=== PATIENT | male | born 1965 | race Two or more races ===

== ENCOUNTER 2018-08-20 15:09 | Emergency (ER) | payer MEDICAID, OTHER ==
[~2018-08-20] VITALS: Ht 172.7 cm; Wt 102.1 kg
[2018-08-20 15:18] VITALS: BP 137/84
[2018-08-20] MEDS ORDERED: KETOROLAC TROMETH 60MG/2ML VIAL IM ONE (17:00)
== END 2018-08-20 17:16 | disposition home or self-care (01) ==
LOC: ER 15:11
DX: M54.5 Low back pain (principal); G89.29 Other chronic pain; K04.7 Periapical abscess without sinus; J45.909 Unspecified asthma, uncomplicated; F17.210 Nicotine dependence, cigarettes, uncomplicated; Z76.0 Encounter for issue of repeat prescription
CPT/HCPCS: 72070; 72100; 96372; 99283; J1885

== ENCOUNTER 2019-02-01 12:58 | Emergency (ER) | payer MEDICAID ==
[~2019-02-01] VITALS: Ht 170.2 cm; Wt 99.8 kg
[2019-02-01 14:15] VITALS: BP 136/92
[2019-02-01] MEDS ORDERED: cefTRIAXone SOD 1,000 MG VL IM ONE (15:30)
== END 2019-02-01 15:48 | disposition home or self-care (01) ==
LOC: ER 12:58
DX: H66.91 Otitis media, unspecified, right ear (principal); J06.9 Acute upper respiratory infection, unspecified; J45.909 Unspecified asthma, uncomplicated; Z87.891 Personal history of nicotine dependence
CPT/HCPCS: 71046; 96372; 99283; J0696

== ENCOUNTER 2020-02-01 21:10 | Emergency (ER) | payer MEDICAID ==
[~2020-02-01] VITALS: Ht 170.2 cm; Wt 102.1 kg
[2020-02-01 21:47] VITALS: BP 112/78
== END 2020-02-02 02:42 | disposition home or self-care (01) ==
LOC: ER 21:18
DX: S93.402A Sprain of unspecified ligament of left ankle, initial encounter (principal); M65.221 Calcific tendinitis, right upper arm; M79.671 Pain in right foot; W01.0XXA Fall on same level from slipping, tripping and stumbling without subsequent striking against object, initial encounter; Y93.01 Activity, walking, marching and hiking; Y92.89 Other specified places as the place of occurrence of the external cause; Y99.8 Other external cause status
CPT/HCPCS: 73080; 73630

== ENCOUNTER 2020-05-26 16:11 | Emergency (ER) | payer MEDICAID ==
[~2020-05-26] VITALS: Ht 170.2 cm; Wt 106.6 kg
[2020-05-26 17:49] LABS: Basophils # (auto) 0 10 ^3/uL (0-0.2); Basophils % (auto) 0.2 % (0.0-2.0); Eosinophils # (auto) 0 10 ^3/uL (0-0.8); Eosinophils % (auto) 0.6 % (0.0-7.0); Hematocrit 46.8 % (41.0-53.0); Hemoglobin 16.4 g/dL (13.5-17.5); Lymphocytes # (auto) 2.1 10 ^3/uL (0.4-5.4); Lymphocytes % (auto) 28.8 % (10.0-50.0); Mean Corpuscular Hemoglobin 31.5 pg (28.0-32.0); Mean Corpuscular Hgb Conc. 35.1 g/dL (32.0-36.0); Mean Corpuscular Volume 89.6 fL (80.0-100.0); Monocytes # (auto) 0.6 10 ^3/uL (0-1.3); Monocytes % (auto) 8.9 % (0.0-12.0); Neutrophils # (auto) 4.4 10 ^3/uL (1.6-8.6); Neutrophils % (auto) 61.5 % (37.0-80.0); Nucleated Red Blood Cells % 0.1 %; Platelet Count (auto) 210 10^3/uL (140-450); Red Blood Cells 5.22 10^6/uL (4.5-5.90); Red Cell Distribution Width 13.7 % (11.8-14.3); White Blood Cell 7.2 10^3/uL (4.4-10.8)
[2020-05-26 18:05] LABS: Salicylate < 1.7 mg/dL (2.8-20.0)
[2020-05-26 18:07] LABS: Alanine Aminotransferase 265 U/L (16-61); Albumin 3.3 g/dL (3.4-5.0); Anion Gap 8 (5-15); Aspartate Aminotransferase 169 U/L (15-37); BUN/Creatinine Ratio 18.6; Blood Alcohol < 3.0 mg/dL (0-5); Blood Urea Nitrogen 18 mg/dL (7-18); Carbon Dioxide 22 mmol/L (21-32); Chloride 102 mmol/L (98-107); GFR African American 105 mL/min; GFR Non-African American 86 mL/min; Glucose 90 mg/dL (74-106); Potassium 3.9 mmol/L (3.5-5.1); Sodium 132 mmol/L (136-145)
[2020-05-26 18:10] LABS: Alkaline Phosphatase 89 U/L (45-117); Total Protein 7.1 g/dL (6.4-8.2)
[2020-05-26 18:17] LABS: Amylase 50 U/L (25-115); Lipase 166 U/L (73-393)
[2020-05-26 18:33] LABS: Acetaminophen < 2.0 ug/mL (10-30)
[2020-05-26] MEDS ORDERED: FAMOTIDINE (10MG/ML) 2ML VL IV ONE (19:00)
[2020-05-26] MEDS ORDERED: DOXYCYCLINE 100 MG TAB/CAP PO ONE (19:00)
[2020-05-26] MEDS ORDERED: SODIUM CHLORIDE 0.9% 500 ML IV ONE (19:00)
[2020-05-26] MEDS ORDERED: cefTRIAXone 1GM/50ML D5W 50 ML IV ONE (19:00)
[2020-05-26] MEDS ORDERED: ONDANSETRON HCL 4 MG/2 ML VIAL IV ONE (21:00)
[2020-05-26] MEDS ORDERED: LORazepam 0.5 MG TAB PO ONE (21:45)
[2020-05-27 01:01] VITALS: BP 103/54
== END 2020-05-27 03:18 | disposition home or self-care (01) ==
LOC: ER 16:11
DX: U07.1 COVID-19 (principal); F41.9 Anxiety disorder, unspecified; J18.9 Pneumonia, unspecified organism; E86.0 Dehydration; R94.5 Abnormal results of liver function studies; K76.0 Fatty (change of) liver, not elsewhere classified; K57.90 Diverticulosis of intestine, part unspecified, without perforation or abscess without bleeding; D73.4 Cyst of spleen; I10 Essential (primary) hypertension; Z87.891 Personal history of nicotine dependence
CPT/HCPCS: 36415; 71045; 74176; 76705; 80053; 80320; 80329; 82150; 83690; 83735; 83880; 84484; 85025; 87426; 93005; 96365; 96375; 99285; C9803; J0696; J2405; J3490; U0003

== ENCOUNTER 2020-11-19 08:33 | Emergency (ER) | payer MEDICAID ==
[~2020-11-19] VITALS: Ht 170.2 cm; Wt 110.2 kg
[2020-11-19 08:58] VITALS: BP 143/93
[2020-11-19] MEDS ORDERED: IBUPROFEN 800 MG TAB PO ONE (09:15)
== END 2020-11-19 10:00 | disposition home or self-care (01) ==
LOC: ER 08:33
DX: S46.912A Strain of unspecified muscle, fascia and tendon at shoulder and upper arm level, left arm, initial encounter (principal); J45.909 Unspecified asthma, uncomplicated; I10 Essential (primary) hypertension; Z87.891 Personal history of nicotine dependence; X50.1XXA Overexertion from prolonged static or awkward postures, initial encounter; Y93.89 Activity, other specified; Y92.89 Other specified places as the place of occurrence of the external cause; Y99.8 Other external cause status
CPT/HCPCS: 73030; 93005

== ENCOUNTER 2021-01-13 12:19 | Emergency (ER) | payer MEDICAID ==
[~2021-01-13] VITALS: Ht 172.7 cm; Wt 108.0 kg
[2021-01-13 13:00] VITALS: BP 126/82
[2021-01-13] MEDS ORDERED: BENZOCAINE (DENTAL) 20 % SPRAY 60ML MT ONE (14:00)
== END 2021-01-13 15:31 | disposition home or self-care (01) ==
LOC: ER 12:19
DX: K02.9 Dental caries, unspecified (principal); J45.909 Unspecified asthma, uncomplicated; I10 Essential (primary) hypertension; Z87.891 Personal history of nicotine dependence

== ENCOUNTER 2021-05-10 18:22 | Emergency (ER) | payer MEDICAID ==
[~2021-05-10] VITALS: Ht 170.2 cm; Wt 102.1 kg
[2021-05-10 18:31] VITALS: BP 132/85
== END 2021-05-11 05:51 | disposition left against medical advice (07) ==
LOC: ER 18:22
DX: M79.602 Pain in left arm (principal); Z53.21 Procedure and treatment not carried out due to patient leaving prior to being seen by health care provider

== ENCOUNTER 2021-07-13 06:51 | Emergency (ER) | payer MEDICAID ==
[2021-07-13 07:58] VITALS: BP 146/86
[2021-07-13] MEDS ORDERED: PROMETHAZINE HCL 25 MG/ML 1ML IM ONE (08:30)
[2021-07-13] MEDS ORDERED: MECLIZINE HCL 25 MG TAB PO ONE (08:30)
[2021-07-13] MEDS ORDERED: AMOX-277 PO (08:55)
[2021-07-13] MEDS ORDERED: MECL1TAB42 PO (08:55)
[2021-07-13] MEDS ORDERED: PROM25TA5 OR (08:55)
== END 2021-07-13 09:20 | disposition home or self-care (01) ==
LOC: ER 06:51
DX: R42 Dizziness and giddiness (principal); H65.03 Acute serous otitis media, bilateral; Z76.0 Encounter for issue of repeat prescription; I10 Essential (primary) hypertension; E78.5 Hyperlipidemia, unspecified; Z87.891 Personal history of nicotine dependence; Z79.2 Long term (current) use of antibiotics; Z79.899 Other long term (current) drug therapy
CPT/HCPCS: 96372; 99283; J2550; J8597

== ENCOUNTER 2021-09-04 00:29 | Emergency (ER) | payer MEDICAID ==
[~2021-09-04] VITALS: Ht 170.2 cm; Wt 106.1 kg
[~2021-09-04 00:29] MED LIST: AMOX-277 PO; MECL1TAB42 PO; PROM25TA5 OR
[2021-09-04 00:31] VITALS: BP 155/97
[2021-09-04] MEDS ORDERED: LEVO-28 PO (03:18)
== END 2021-09-04 04:22 | disposition home or self-care (01) ==
LOC: ER 00:29
DX: J40 Bronchitis, not specified as acute or chronic (principal); E78.5 Hyperlipidemia, unspecified; I10 Essential (primary) hypertension; Z87.891 Personal history of nicotine dependence
CPT/HCPCS: 71045

== ENCOUNTER 2022-09-09 08:15 | Emergency (ER) | payer MEDICAID ==
[~2022-09-09] VITALS: Ht 177.8 cm; Wt 116.4 kg
[~2022-09-09 08:15] MED LIST changes: +LEVO-28 PO
[2022-09-09 09:02] VITALS: BP 148/94
[2022-09-09] MEDS ORDERED: IPRATROPIUM BROM 0.5 MG/2.5ML INH SOL ONE (09:37)
[2022-09-09] MEDS ORDERED: ALBUTEROL SULF 2.5 MG/0.5ML(0.5%) NEB SOLN ONE (09:37)
[2022-09-09] MEDS ORDERED: AUG875T PO (09:43)
[2022-09-09] MEDS ORDERED: PRED20TA2 PO (09:44)
[2022-09-09] MEDS ORDERED: ALBU108A5 IN (09:44)
[2022-09-09] MEDS ORDERED: BENZ100C19 PO (09:44)
[2022-09-09] MEDS ORDERED: DexAMETHasone SOD PHOS 10MG/1ML VIAL INJ IM ONE (09:45)
[2022-09-09] MEDS ORDERED: IPRATROPIUM BROM 0.5 MG/2.5ML INH SOL NEB ONE (09:45)
[2022-09-09] MEDS ORDERED: ALBUTEROL SULF 2.5 MG/0.5ML(0.5%) NEB SOLN NEB ONE (09:45)
[2022-09-09] MEDS ORDERED: guaiFENesin-CODEINE Liq 5 ML UD PO ONE (09:45)
== END 2022-09-09 10:11 | disposition home or self-care (01) ==
LOC: ER 08:15
DX: J20.9 Acute bronchitis, unspecified (principal); J03.90 Acute tonsillitis, unspecified; E78.5 Hyperlipidemia, unspecified; I10 Essential (primary) hypertension
CPT/HCPCS: 94640; 96372; 99283; J1100; J7644

== ENCOUNTER 2023-08-18 06:15 | Emergency (ER) | payer MEDICAID ==
[~2023-08-18] VITALS: Ht 172.7 cm; Wt 118.1 kg
[~2023-08-18 06:15] MED LIST changes: +ALBU108A5 IN; -AMOX-277 PO; +AMOX875T4 PO; +AUG875T PO; +BENZ100C19 PO; -LEVO-28 PO; +LEVO500T91 PO; +PRED20TA2 PO; +PROM25TA10 OR; -PROM25TA5 OR
[2023-08-18 06:55] VITALS: BP 132/87; PULSE 79; RESP 20; TEMP 97.6; O2SAT 97
[2023-08-18] MEDS ORDERED: AUG875T PO (07:52)
[2023-08-18] MEDS ORDERED: PROM1SOL4 PO (07:52)
[2023-08-18] MEDS ORDERED: BENZ100C97 PO (07:52)
[2023-08-18] MEDS: ONDANSETRON ODT 4 MG TAB PO ONE (08:07)
== END 2023-08-18 08:14 | disposition home or self-care (01) ==
LOC: ER 06:15
DX: J20.9 Acute bronchitis, unspecified (principal); E78.5 Hyperlipidemia, unspecified; I10 Essential (primary) hypertension; Z87.891 Personal history of nicotine dependence
CPT/HCPCS: 71046; 99283; Q0162

== ENCOUNTER 2024-02-29 08:13 | Emergency (ER) | payer MEDICAID ==
[~2024-02-29] VITALS: Ht 175.3 cm; Wt 112.1 kg
[~2024-02-29 08:13] MED LIST changes: +BENZ100C97 PO; +ECON1CRE6 TOP; +NYST150P2 XX; +PROM1SOL4 PO
[2024-02-29 08:36] VITALS: BP 182/107; PULSE 82; RESP 18; TEMP 97.4; O2SAT 97
[2024-02-29] MEDS ORDERED: PSEU120T18 PO (08:56)
[2024-02-29] MEDS ORDERED: PROM1SOL4 PO (08:56)
[2024-02-29] MEDS ORDERED: AZIT-43 PO (08:56)
[2024-02-29] MEDS ORDERED: IBUP1TAB5 PO (08:56)
[2024-02-29] MEDS ORDERED: SODI1KIT2 (08:56)
== END 2024-02-29 09:07 | disposition home or self-care (01) ==
LOC: ER 08:13
DX: B34.9 Viral infection, unspecified (principal); I10 Essential (primary) hypertension; E78.5 Hyperlipidemia, unspecified

== ENCOUNTER 2024-04-05 11:06 | Emergency (ER) | payer MEDICAID ==
[~2024-04-05] VITALS: Ht 170.2 cm; Wt 113.6 kg
[~2024-04-05 11:06] MED LIST changes: +AZIT-43 PO; +IBUP1TAB5 PO; +PSEU120T18 PO; +SODI1KIT2
--- NOTE | 2024-04-05 11:38 | ED.PDOC ---
Musculoskeletal HPI Comments 58 year old male presents to the ED with chief complaint of bilateral shoulder pain. Patient reports that he has been experiencing bilateral shoulder pain with associated bilateral knee pain, right sided headache, mild SOB, back pain, and neck pain after having an elevator door close on him when trying to enter it. Patient relays when the doors closed on his shoulders, he had hit his head accidentally against the door, causing his headache. Patient denies any LOC, dizziness, blurred vision, chest pain, or numbness. Time Seen by MD: 11:32 Primary Care Provider: NONE Reviewed Notes: Nurses Notes, Medications, Allergies Allergies: Coded Allergies: NO KNOWN ALLERGIES (Unverified , 08/20/18) Home Meds Active Scripts Sodium Chloride-Sodium Bicarbo (Neti Pot Kit Sinus Wash/C 2300-700 mg) 1 Kit Kit, 1 KIT NA UD for 30 Days, #1 KIT 0 Refills Prov:MARTIN GTZ NP 02/29/24 Ibuprofen Micronized (Ibuprofen) 600 Mg Tab, 600 MG PO TIDPRN PRN for 10 Days, #30 TAB 0 Refills Prov:MARTIN GTZ NP 02/29/24 Azithromycin (Azithromycin) 250 Mg Tab, 250 MG PO DAILY MDD 500 for 5 Days, #6 TAB 0 Refills 2 TABLETS ORALLY ON DAY ONE, THEN 1 TABLET ORALLY DAILY FOR 4 DAYS Prov:MARTIN GTZ NP 02/29/24 Pseudoephedrine-Guaifenesin (Mucinex D) 1 Tab Tab, 1 TAB PO BID for 10 Days, #20 TAB 0 Refills Prov:MARTIN GTZ NP 02/29/24 Promethazine-Dm (Promethazine Dm 6.25-15 mg/5Ml) 1 Sherry Sherry, 5 ML PO TIDPRN PRN for 10 Days, #150 ML 0 Refills Prov:MARTIN GTZ NP 02/29/24 Nystatin (Nystatin) 1 Pow Pow, 1 POW XX BID for 10 Days, #1 KIT 0 Refills Prov:MARTIN GTZ NP 12/29/23 Econazole Nitrate (Econazole Nitrate) 1 % Cre, 1 APPLIC TOP BID for 14 Days, #30 GRAMS 0 Refills Prov:MARTIN GTZ NP 12/29/23 Promethazine-Dm (Promethazine Dm 6.25-15 mg/5Ml) 1 Sherry Sherry, 5 ML PO TID for 10 Days, #150 ML 0 Refills Prov:MARTIN GTZ BILL DISTRIBUTOR 08/18/23 Benzonatate (Benzonatate) 100 Mg Cap, 100 MG PO TID for 10 Days, #30 CAP 0 Refills Prov:MARTIN GTZ BILL DISTRIBUTOR 08/18/23 Amoxicillin & Pot Clavulanate (AUGMENTIN TABLET) 875 Mg Tb, 875 MG PO BID for 5 Days, #10 TAB 0 Refills Prov:MARTIN GTZ BILL DISTRIBUTOR 08/18/23 Albuterol Sulfate (Albuterol Sulfate Hfa) 108 Mcg/Act Aer, 2 PUFF IN Q4H, #1 AER As needed for cough shortness of breath wheezing congestion Prov:DEWEYKERRIANAIS Q BILL DISTRIBUTOR 09/09/22 Prednisone (Prednisone) 20 Mg Tab, 20 MG PO BID for 5 Days, #10 MG Start tomorrow with food Prov:DEWEYKERRIANAIS Q BILL DISTRIBUTOR 09/09/22 Benzonatate (Tessalon Perles) 100 Mg Cap, 2 CAP PO Q8HR, #21 CAP As needed for cough Prov:DEWEYKERRIANAIS Q BILL DISTRIBUTOR 09/09/22 Amoxicillin & Pot Clavulanate (AUGMENTIN TABLET) 875 Mg Tb, 875 MG PO BID for 10 Days, #20 TAB Prov:DEWEYKERRIANAIS Q BILL DISTRIBUTOR 09/09/22 Levofloxacin Hemihydrate (LEVOFLOXACIN) 500 Mg Tab, 500 MG PO DAILY for 10 Days, #10 MG Prov:LEO BELCHER MD 09/04/21 Promethazine Hcl (Promethazine Hcl) 25 Mg Tab, 25 MG OR BID, #20 TAB 0 Refills Prov:THERESA WORKMAN 07/13/21 Meclizine HCl (Meclizine 25) 25 Mg Tab, 25 MG PO TID, #30 TAB Prov:THERESA WORKMAN 07/13/21 Amoxicillin & Pot Clavulanate (Amoxicillin/Potassium Cla) 875 Mg Tab, 875 MG PO BID, #20 TAB Prov:THERESA WORKMAN 07/13/21 Information Source: Patient Mode of Arrival: Ambulatory Location: Bilateral Extremity Location: Back, Knee, Shoulder Timing: Hours Prehospital treatment: None Severity: Moderate Able to Move Extremity: Yes Bear Weight: Fully Pain: Moderate Mechanism: Crush Circumstances: Door Closure Onset of Symptoms: After Trauma Symptoms: Pain DVT Risk Factors: NONE Last Tetanus: Unknown Past Medical History PAST MEDICAL HISTORY: High Lipids, HTN Surgical History: Denies all surgeries Family History Family History: Reviewed,noncontributory to illness, Family hx of HTN Social History Smoker: Quit Greater Than 1 Year, Cigarettes Alcohol: Denies ETOH Use Drugs: Denies Drug Use Lives In: Home Constitutional: denies: chills, diaphoresis, fatigue, fever, malaise, sweats, weakness, others EENTM: denies: blurred vision, double vision, ear bleeding, ear discharge, ear drainage, ear pain, ear ringing, eye pain, eye redness, hearing loss, mouth pain, mouth swelling, nasal discharge, nose bleeding, nose congestion, nose az n, photophobia, tearing, throat pain, throat swelling, voice changes, others Respiratory: reports: shortness of breath; denies: cough, hemoptysis, orthopnea, SOB at rest, SOB with excertion, stridor, wheezing, others Cardiovascular: denies: chest pain, dizzy spells, diaphoresis, Dyspnea on exertion, edema, irregular heart beat, left arm pain, lightheadedness, palpitations, PND, syncope, others Gastrointestinal: denies: abdomen distended, abdominal pain, blood streaked bowels, constipated, diarrhea, dysphagia, difficulty swallowing, hematemesis, me lacey, nausea, poor appetite, poor fluid intake, rectal bleeding, rectal pain, vomiting, others Genitourinary: denies: burning, dysuria, flank pain, frequency, hematuria, incontinence, penile discharge, penile sore, pain, testicle pain, testicle swelling, urgency, others Neurological: reports: headache; denies: dizziness, fainting, left sided numbness, left sided weakness, numbness, paresthesia, pre-existing deficit, right sided numbness, right sided weakness, seizure, speech problems, tingling, tremors, weakness, others Musculoskeletal: reports: back pain, neck pain, others (Bilateral shoulder pain, bilateral knee pain, ); denies: gout, joint pain, joint swelling, muscle pain, muscle stiffness Integumetry: denies: bruises, change in color, change in hair/nails, dryness, laceration, lesions, lumps, rash, wounds, others Allergic/Immunocompromised: denies: Difficulty Healing, Frequent Infections, Hives, Itching, others Hematologic/Lymphatic: denies: anemia, blood clots, easy bleeding, easy bruising, swollen glands, others Endocrine: denies: excessive hunger, excessive sweating, excessive thirst, excessive urination, flushing, intolerance to cold, intolerance to heat, unexplained weight gain, unexplained weight loss, others Psychiatric: denies: anxiety, bipolar disorder, depression, hopeless, panic disorder, schizophrenia, sleepless, suicidal, others All Other Systems: Reviewed and Negative Physical Exam General Appearance: No Apparent Distress, Normal HEENT: Normal ENT Inspection, PERRL/EOMI Neck: Full Range of Motion, Non-Tender, Normal, Normal Inspection Respiratory: Chest Non-Tender, Lungs Clear, No Accessory Muscle Use, No Respiratory Distress, Normal Breath Sounds Cardiovascular: No Edema, No JVD, No Murmur, No Gallop, Normal Peripheral Pul ses, Regular Rate/Rhythm Breast Exam: Deferred Gastrointestinal: No Organomegaly, Non Tender, No Pulsatile Mass, Normal Bowel Sounds, Soft Genitalia: Deferred Pelvic: Deferred Rectal: Deferred Extremities: No calf tenderness, Normal capillary refill, Normal inspection, Normal range of motion, Non-tender, No pedal edema Musculoskeletal : Apperance: Normal Neurologic: Alert, cable tender II-XII nml as Tested, No Motor Deficits, Normal Affect, Normal Mood, No Sensory Deficits Cerebellar Function: Normal Reflexes: Normal Skin: Dry, Normal Color, Warm Lymphatic: No Adenopathy Was a procedure done? Was a procedure done?: No Differential Diagnosis EXT Differential Diagnosis: Fracture, Sprain, Contusion, Strain X-Ray, Labs, Meds, VS Vital Signs Date Time Temp Pulse Resp B/P (MAP) Pulse Ox O2 Delivery O2 Flow Rate FiO2 04/05/24 13:00 97.7 87 20 144/96 (112) 92 97.7 04/05/24 12:59 98.6 04/05/24 12:58 98.6 04/05/24 12:57 60 18 98 Room Air* 0 21 04/05/24 11:33 98.0 100 17 150/90 (110) 99 Current Medications Medications (Trade) Dose Ordered Sig/Radha Route Start Time Stop Time Status Last Admin Acetaminophen (Tylenol Tablet) 1,000 mg ONCE ONCE PO 04/05/24 11:45 04/05/24 11:46 DC 04/05/24 12:59 Ibuprofen (Motrin Tablet) 800 mg ONCE ONCE PO 04/05/24 11:45 04/05/24 11:46 DC 04/05/24 12:58 XR C-Spine: FINDINGS: Straightening of the cervical spine. C7 vertebral body is obscured due to overlying osseous structures. The predental space is normal. Mild multilevel degenerative disc disease of the cervical spine. No acute fracture, vertebral compression deformity or aggressive osseous lesions. The imaged lung apices are unremarkable. IMPRESSION: No acute fracture. Lt Shoulder XR: FINDINGS/IMPRESSION: There is no evidence of acute fracture or dislocation. The visualized joint space is well maintained. The alignment is anatomical. There is no radiopaque foreign body. Rt Shoulder XR: FINDINGS/IMPRESSION: : There is no evidence of acute fracture or dislocation. Soft tissues are unremarkable. Degenerative changes of the AC joint and lateral aspect of the proximal humeral head. Images Reviewed?: Images reviewed and evaluated by me Time of 1ST Reevaluation: 12:32 Reevaluation 1ST: Unchanged Time of 2ND Reevaluation: 13:33 Reevaluation 2ND: Unchanged Patient Education/Counseling: Diagnosis, Treatment Family Education/Counseling: No Family Present Departure 1 Departure Time of Disposition: 13:33 Impression: Primary Impression: Left shoulder strain Additional Impression: Neck sprain Disposition: 01 HOME / SELF CARE / HOMELESS Condition: Stable Additional Instructions: Thank you for visiting our Emergency Room. I wish you full and complete recovery. Please follow the following instructions: 1. Take your medication bottles with you to EVERY DOCTOR'S VISIT (including your primary doctor). 2. Please follow up with your primary doctor in 2-3 days or sooner if symptoms do not improve. 3. Please read all the papers given to you at the time of the discharge so that you understand your condition better. 4. Please note that the emergency room visits are focused and not necessarily comprehensive. Therefore, it is possible that some occult medical conditions may go undiagnosed in the ER. 5. The emergency room visits are not and should not be thought of as replacement for regular visits with your primary doctor. 6. Therefore, it is absolutely critical that you follows up with your primary doctor on regular basis to make sure you receives a complete and comprehensive care. 7. I recommended the you take the hospital discharge papers to your primary care physician and other doctors' offices with you. 8. Go to your nearest emergency room if you think your condition gets worse or you think your condition is an emergency. Discharged With: Self Critical Care Note Critical Care Time?: No Stability Stability form required: No Heart Score Heart Score: Heart Score Response (Comments) Value History N/A 0 EKG N/A 0 Age N/A 0 Risk Factors N/A 0 Troponin N/A 0 Total 0 I personally scribed for CLIVE RENE MD ([email or web address]) on 04/05/24 at 11:38. Electronically submitted by Sean Calderon ([email or web address]). I personally scribed for CLIVE REEN MD ([email or web address]) on 04/05/24 at 13:14. Electronically submitted by Sean Calderon ([email or web address]). CLIVE RENE MD Apr 05, 2024 11:38
--- NOTE | 2024-04-05 12:21 | DVH ---
CLINICAL INDICATION: trauma TECHNIQUE: 3 XY L SHOULDER 2+ VIEW XRAY Comparison: L SHOULDER COMPLETE XRAY on DOS: 11/19/20 FINDINGS/IMPRESSION: : There is no evidence of acute fracture or dislocation. Soft tissues are unremarkable. Degenerative changes of the AC joint and lateral aspect of the proximal humeral head.
--- NOTE | 2024-04-05 12:31 | DVH ---
CLINICAL INDICATION: trauma TECHNIQUE: 3 radiographic views of the right shoulder were obtained. Comparison: L SHOULDER COMPLETE XRAY on DOS: 11/19/20 FINDINGS/IMPRESSION: There is no evidence of acute fracture or dislocation. The visualized joint space is well maintained. The alignment is anatomical. There is no radiopaque foreign body.
--- NOTE | 2024-04-05 12:32 | DVH ---
INDICATION: TRAUMA COMPARISON: None TECHNIQUE: 4 views of the cervical spine were obtained. FINDINGS: Straightening of the cervical spine. C7 vertebral body is obscured due to overlying osseous structure s. The predental space is normal. Mild multilevel degenerative disc disease of the cervical spine. No acute fracture, vertebral compression deformity or aggressive osseous lesions. The imaged lung apices are unremarkable. IMPRESSION: No acute fracture.
[2024-04-05 12:57] VITALS: PULSE 60; RESP 18; O2SAT 98
[2024-04-05] MEDS: IBUPROFEN 800 MG TAB PO ONE (12:58)
[2024-04-05] MEDS: ACETAMINOPHEN 500 MG TAB or CAP PO ONE (12:59)
[2024-04-05 14:09] VITALS: BP 152/97; PULSE 79; RESP 18; TEMP 97.8; O2SAT 96
== END 2024-04-05 14:10 | disposition home or self-care (01) ==
LOC: ER 11:06
DX: S46.812A Strain of other muscles, fascia and tendons at shoulder and upper arm level, left arm, initial encounter (principal); S13.8XXA Sprain of joints and ligaments of other parts of neck, initial encounter; M25.561 Pain in right knee; M25.562 Pain in left knee; I10 Essential (primary) hypertension; E78.5 Hyperlipidemia, unspecified; Z87.891 Personal history of nicotine dependence; Z79.899 Other long term (current) drug therapy; Z79.52 Long term (current) use of systemic steroids; W22.8XXA Striking against or struck by other objects, initial encounter; Y93.89 Activity, other specified; Y92.89 Other specified places as the place of occurrence of the external cause; Y99.8 Other external cause status
CPT/HCPCS: 72040; 73030

== ENCOUNTER 2025-02-26 10:16 | Emergency (ER) | payer MEDICAID ==
[~2025-02-26] VITALS: Ht 172.7 cm; Wt 108.1 kg
--- NOTE | 2025-02-26 10:52 | ED.PDOC ---
GI ASSESSMENT HPI Comments This is a 59 year-old male who presents to the ED with a chief complaint of N/V and abdominal pain as of yesterday. Patient denies any recent ingestion of ETOH or drugs. Patient states he is unable to tolerate any liquids or food. Patient has no further complaints at this time and otherwise denies further associated symptoms of dizziness, fever, chills, diarrhea, or chest pain. Chief Complaint: Abdominal Pain Time Seen by MD: 10:31 Primary Care Provider: none Reviewed Notes: Medications, Allergies Allergies: Coded Allergies: NO KNOWN ALLERGIES (Unverified , 08/20/18) Home Meds Active Scripts Sodium Chloride-Sodium Bicarbo (Neti Pot Kit Sinus Wash/C 2300-700 mg) 1 Kit Kit, 1 KIT NA UD for 30 Days, #1 KIT 0 Refills Prov:MARTIN GTZ BOBBY 02/29/24 Ibuprofen Micronized (Ibuprofen) 600 Mg Tab, 600 MG PO TIDPRN PRN for 10 Days, #30 TAB 0 Refills Prov:MARTIN GTZ BOBBY 02/29/24 Azithromycin (Azithromycin) 250 Mg Tab, 250 MG PO DAILY MDD 500 for 5 Days, #6 TAB 0 Refills 2 TABLETS ORALLY ON DAY ONE, THEN 1 TABLET ORALLY DAILY FOR 4 DAYS Prov:MARTIN GTZ BOBBY 02/29/24 Pseudoephedrine-Guaifenesin (Mucinex D) 1 Tab Tab, 1 TAB PO BID for 10 Days, #20 TAB 0 Refills Prov:MARTIN GTZ BOBBY 02/29/24 Promethazine-Dm (Promethazine Dm 6.25-15 mg/5Ml) 1 Sherry Sherry, 5 ML PO TIDPRN PRN for 10 Days, #150 ML 0 Refills Prov:MARTIN GTZ BOBBY 02/29/24 Nystatin (Nystatin) 1 Pow Pow, 1 POW XX BID for 10 Days, #1 KIT 0 Refills Prov:MARTIN GTZ BOBBY 12/29/23 Econazole Nitrate (Econazole Nitrate) 1 % Cre, 1 APPLIC TOP BID for 14 Days, #30 GRAMS 0 Refills Prov:MARTIN GTZ BOBBY 12/29/23 Promethazine-Dm (Promethazine Dm 6.25-15 mg/5Ml) 1 Sherry Sherry, 5 ML PO TID for 10 Days, #150 ML 0 Refills Prov:MARTIN GTZ METAL CLEANER 08/18/23 Benzonatate (Benzonatate) 100 Mg Cap, 100 MG PO TID for 10 Days, #30 CAP 0 Refills Prov:MARTIN GTZ METAL CLEANER 08/18/23 Amoxicillin & Pot Clavulanate (AUGMENTIN TABLET) 875 Mg Tb, 875 MG PO BID for 5 Days, #10 TAB 0 Refills Prov:MARTIN GTZ METAL CLEANER 08/18/23 Albuterol Sulfate (Albuterol Sulfate Hfa) 108 Mcg/Act Aer, 2 PUFF IN Q4H, #1 AER As needed for cough shortness of breath wheezing congestion Prov:MAGO PALOMO Q METAL CLEANER 09/09/22 Prednisone (Prednisone) 20 Mg Tab, 20 MG PO BID for 5 Days, #10 MG Start tomorrow with food Prov:MAGO PALOMO Q METAL CLEANER 09/09/22 Benzonatate (Tessalon Perles) 100 Mg Cap, 2 CAP PO Q8HR, #21 CAP As needed for cough Prov:MAGO PALOMO Q METAL CLEANER 09/09/22 Amoxicillin & Pot Clavulanate (AUGMENTIN TABLET) 875 Mg Tb, 875 MG PO BID for 10 Days, #20 TAB Prov:MAGO PALOMO Q METAL CLEANER 09/09/22 Levofloxacin Hemihydrate (LEVOFLOXACIN) 500 Mg Tab, 500 MG PO DAILY for 10 Days, #10 MG Prov:LEO BELCHER MD 09/04/21 Promethazine Hcl (Promethazine Hcl) 25 Mg Tab, 25 MG OR BID, #20 TAB 0 Refills Prov:THERESA WORKMAN 07/13/21 Meclizine HCl (Meclizine 25) 25 Mg Tab, 25 MG PO TID, #30 TAB Prov:THERESA WORKMAN 07/13/21 Amoxicillin & Pot Clavulanate (Amoxicillin/Potassium Cla) 875 Mg Tab, 875 MG PO BID, #20 TAB Prov:THERESA WORKMAN 07/13/21 Information Source: Patient Mode of Arrival: Ambulatory Timing: Hours Duration: Since onset Prehospital treatment: None Severity: Moderate Associated sign and symptoms: Nausea, Vomiting, Abdominal Pain Past Medical History PAST MEDICAL HISTORY: High Lipids, HTN Surgical History: Denies all surgeries Family History Family History: Reviewed,noncontributory to illness, Family hx of HTN Social History Smoker: Quit Greater Than 1 Year, Cigarettes Alcohol: Denies ETOH Use Drugs: Denies Drug Use Lives In: Home Constitutional: denies: chills, diaphoresis, fatigue, fever, malaise, sweats, w eakness, others EENTM: denies: blurred vision, double vision, ear bleeding, ear discharge, ear drainage, ear pain, ear ringing, eye pain, eye redness, hearing loss, mouth pain, mouth swelling, nasal discharge, nose bleeding, nose congestion, nose pain, photophobia, tearing, throat pain, throat swelling, voice changes, others Respiratory: denies: cough, hemoptysis, orthopnea, SOB at rest, shortness of breath, SOB with excertion, stridor, wheezing, others Cardiovascular: denies: chest pain, dizzy spells, diaphoresis, Dyspnea on exertion, edema, irregular heart beat, left arm pain, lightheadedness, palpitations, PND, syncope, others Gastrointestinal: reports: abdomen distended, abdominal pain, nausea, vomiting; denies: blood streaked bowels, constipated, diarrhea, dysphagia, difficulty swallowing, hematemesis, melena, poor appetite, poor fluid intake, rectal bleeding, rectal pain, others Genitourinary: denies: burning, dysuria, flank pain, frequency, hematuria, incontinence, penile discharge, penile sore, pain, testicle pain, testicle swelling, urgency, others Neurological: denies: dizziness, fainting, headache, left sided numbness, left sided weakness, numbness, paresthesia, pre-existing deficit, right sided numbness, right sided weakness, seizure, speech problems, tingling, tremors, weakness, others Musculoskeletal: denies: back pain, gout, joint pain, joint swelling, muscle pain, muscle stiffness, neck pain, others Integumetry: denies: bruises, change in color, change in hair/nails, dryness, laceration, lesions, lumps, rash, wounds, others Allergic/Immunocompromised: denies: Difficulty Healing, Frequent Infections, Hives, Itching, others Hematologic/Lymphatic: denies: anemia, blood clots, easy bleeding, easy bruisi ng, swollen glands, others Endocrine: denies: excessive hunger, excessive sweating, excessive thirst, exce ssive urination, flushing, intolerance to cold, intolerance to heat, unexplained weight gain, unexplained weight loss, others Psychiatric: denies: anxiety, bipolar disorder, depression, hopeless, panic disorder, schizophrenia, sleepless, suicidal, others All Other Systems: Reviewed and Negative Physical Exam General Appearance: Moderate Distress HEENT: Normal ENT Inspection, Pharynx Normal, TMs Normal Neck: Full Range of Motion, Non-Tender, Normal, Normal Inspection Respiratory: Chest Non-Tender, Lungs Clear, No Accessory Muscle Use, No Respiratory Distress, Normal Breath Sounds Cardiovascular: No Edema, No JVD, No Murmur, No Gallop, Normal Peripheral Pulses, Regular Rate/Rhythm Breast Exam: Deferred Gastrointestinal: No Organomegaly, Non Tender, No Pulsatile Mass, Normal Bowel Sounds, Soft Genitalia: Deferred Pelvic: Deferred Rectal: Deferred Extremities: No calf tenderness, Normal capillary refill, Normal inspection, Normal range of motion, Non-tender, No pedal edema Musculoskeletal : Apperance: Normal Neurologic: Alert, public health technologist II-XII nml as Tested, No Motor Deficits, Normal Affect, Normal Mood, No Sensory Deficits Cerebellar Function: Normal Reflexes: Normal Skin: Dry, Normal Color, Warm Peripheral Pulses: 3+ Radial (R), 3+ Radial (L) Lymphatic: No Adenopathy Was a procedure done? Was a procedure done?: No GI differential Dx Differential Diagnosis: Constipation, Diverticular disease, Esophagitis, Gastritis/PUD, Gastroenteritis, Inflammatory BD, Dehydration, Food Poisoning, Bacterial, Parasitic, Viral, Kidney Stone X-Ray, Labs, Meds, VS Vital Signs Date Time Temp Pulse Resp B/P (MAP) Pulse Ox O2 Delivery O2 Flow Rate FiO2 02/26/25 11:05 98.3 70 16 133/88 (103) 99 98.3 02/26/25 11:05 70 16 99 Room Air 02/26/25 10:57 Room Air* 0 21 02/26/25 10:17 97.6 69 135/89 95 97.6 Lab Test 02/26/25 10:32 Range/Units White Blood Count 10.6 4.4-10.8 10^3/uL Red Blood Count 5.12 4.5-5.90 10^6/uL Hemoglobin 16.5 13.5-17.5 g/dL Hematocrit 47.4 41.0-53.0 % Mean Corpuscular Volume 92.6 80.0-100.0 fL Mean Corpuscular Hemoglobin 32.2 H 28.0-32.0 pg Mean Corpuscular Hemoglobin Concent 34.8 32.0-36.0 g/dL Red Cell Distribution Width 13.5 11.8-14.3 % Platelet Count 146 140-450 10^3/uL Mean Platelet Volume 7.4 6.9-10.8 fL Neutrophils (%) (Auto) 80.4 H 37.0-80.0 % Lymphocytes (%) (Auto) 13.4 10.0-50.0 % Monocytes (%) (Auto) 4.9 0.0-12.0 % Eosinophils (%) (Auto) 1.0 0.0-7.0 % Basophils (%) (Auto) 0.3 0.0-2.0 % Neutrophils # (Auto) 8.5 1.6-8.6 10 ^3/uL Lymphocytes # (Auto) 1.4 0.4-5.4 10 ^3/uL Monocytes # (Auto) 0.5 0-1.3 10 ^3/uL Eosinophils # (Auto) 0.1 0-0.8 10 ^3/uL Basophils # (Auto) 0 0-0.2 10 ^3/uL Nucleated Red Blood Cells 0.0 % Sodium Level 140 136-145 mmol/L Potassium Level 4.1 3.5-5.1 mmol/L Chloride Level 106 98-107 mmol/L Carbon Dioxide Level 24 20-31 mmol/L Anion Gap 10 5-15 Blood Urea Nitrogen 11 9-23 mg/dL Creatinine 0.87 0.700-1.30 mg/dL Glomerular Filtration Rate Calc 101 >90 mL/min BUN/Creatinine Ratio 12.6 10.0-20.0 Serum Glucose 109 H 74-106 mg/dL Calcium Level 8.7 8.7-10.4 mg/dL Current Medications Medications (Trade) Dose Ordered Sig/Radha Route Start Time Stop Time Status Last Admin Sodium Chloride 1,000 ml @ 1,000 mls/hr Q1H ONCE IV 02/26/25 11:00 02/26/25 11:59 DC 02/26/25 10:56 Ondansetron HCl (Zofran) 4 mg ONCE ONCE IV 02/26/25 11:00 02/26/25 11:01 DC 02/26/25 10:57 Patient alert. Came in because abdominal discomfort. Vitals stable. Answering questions. Abdomen is soft nontender. Ambulating without difficulty. Establish intravenous access. Was given fluids. Was given Zofran. WBC within normal limits. Hemoglobin within normal limits. No acute process. No leg swelling. No shortness a breath. Explained to the patient. Was told to follow up with his primary care physician. Was told to come back if there is any problem. Time of 1ST Reevaluation: 11:51 Reevaluation 1ST: Unchanged Patient Education/Counseling: Diagnosis, Treatment Family Education/Counseling: No Family Present SEPSIS Sepsis Screen Date sepsis recognized/suspect: Feb 26, 2025 Time Sepsis recognized/suspect: 1017 Recent Procedure: No On Antibiotic Therapy: No Respiratory Rate >20: No Heart Rate >90: No Temp<36 C (96.8 F) or >38.3 C: No SBP <90 or MAP <65 mmHG: No New Acute Mental Status Change: No Is the patient on CPAP, BIPAP,: No Vital Signs Date Time Temp Pulse Resp B/P (MAP) Pulse Ox O2 Delivery O2 Flow Rate FiO2 02/26/25 11:05 98.3 70 16 133/88 (103) 99 98.3 02/26/25 11:05 70 16 99 Room Air 02/26/25 10:57 Room Air* 0 21 02/26/25 10:17 97.6 69 135/89 95 97.6 Laboratory Tests Test 02/26/25 10:32 White Blood Count 10.6 10^3/uL (4.4-10.8) Medications Medications Dose Ordered Sig/Radha Route Start Time Stop Time Status Last Admin Dose Admin Ondansetron HCl 4 mg ONCE ONCE IV 02/26/25 11:00 02/26/25 11:01 DC 02/26/25 10:57 Sodium Chloride 1,000 ml @ 1,000 mls/hr Q1H ONCE IV 02/26/25 11:00 02/26/25 11:59 DC 02/26/25 10:56 Departure 1 Departure Time of Disposition: 12:13 Impression: Primary Impression: Gastroenteritis Disposition: 01 HOME / SELF CARE / HOMELESS Condition: Good Discharged With: Self Critical Care Note Critical Care Time?: No Stability Stability form required: No Heart Score Heart Score: Heart Score Response (Comments) Value History N/A 0 EKG N/A 0 Age N/A 0 Risk Factors N/A 0 Troponin N/A 0 Total 0 I personally scribed for LEO BELCHER MD ([email or web address]) on 02/26/25 at 10:52. Electronically submitted by Nikia Hightower ([employer]). I personally scribed for LEO BELCHER MD ([email or web address]) on 02/26/25 at 10:54. Electronically submitted by Nikia Hightower ([employer]). LEO BELCHER MD Feb 26, 2025 10:52
[2025-02-26] MEDS: SODIUM CHLORIDE 0.9% 1,000 ML IV ONE (10:56)
[2025-02-26] MEDS: ONDANSETRON HCL 4 MG/2 ML VIAL IV ONE (10:57)
[2025-02-26 11:12] LABS: Hematocrit 47.4 % (41.0-53.0); Hemoglobin 16.5 g/dL (13.5-17.5); Mean Corpuscular Hemoglobin 32.2 pg (28.0-32.0); Mean Corpuscular Volume 92.6 fL (80.0-100.0); Nucleated Red Blood Cells % 0.0 %
[2025-02-26 11:13] LABS: Chloride 106 mmol/L (98-107); Potassium 4.1 mmol/L (3.5-5.1); Sodium 140 mmol/L (136-145)
[2025-02-26 11:14] LABS: Anion Gap 10 (5-15); Carbon Dioxide 24 mmol/L (20-31)
[2025-02-26 11:16] LABS: Calcium 8.7 mg/dL (8.7-10.4)
[2025-02-26 11:19] LABS: BUN/Creatinine Ratio 12.6 (10.0-20.0); Blood Urea Nitrogen 11 mg/dL (9-23)
[2025-02-26 11:21] LABS: Glucose 109 mg/dL (74-106)
[2025-02-26 12:26] VITALS: BP 122/67; PULSE 77; RESP 17; TEMP 98.7; O2SAT 98
== END 2025-02-26 12:27 | disposition home or self-care (01) ==
LOC: ER 10:16
DX: K52.9 Noninfective gastroenteritis and colitis, unspecified (principal); I10 Essential (primary) hypertension; Z79.899 Other long term (current) drug therapy
CPT/HCPCS: 36415; 80048; 85025; 96361; 96374; 99283; J2405; J7030

== ENCOUNTER 2025-03-15 07:35 | Emergency (ER) | payer MEDICAID ==
[~2025-03-15] VITALS: Ht 172.7 cm; Wt 109.3 kg
--- NOTE | 2025-03-15 08:19 | DVH ---
EXAM: XY CHEST PORTABLE Indication: COUGH Technique: Single frontal view of the chest was obtained Comparison: CHEST PORTABLE on DOS: 09/04/21, CXRP on DOS: 09/03/21, CHEST XRAY 1 VIEW on DOS: 05/26/20 FINDINGS: Lines and Tubes: None Lungs: No focal consolidation. Pleura: No effusion. No pneumothorax. Cardiomediastinal contours: Unremarkable Bones: No acute osseous abnormality. IMPRESSION: No acute cardiopulmonary disease.
[2025-03-15] MEDS ORDERED: PRED20TA2 PO (08:34)
[2025-03-15] MEDS ORDERED: CEPH500C PO (08:34)
--- NOTE | 2025-03-15 08:41 | ED.PDOC ---
SOB-HPI HPI Comments 59-YEAR-OLD MALE PRESENTS TO ER FOR COUGH AND THROAT PAIN. PT STATES HE STARTED COUGH AND CONGESTION 2 WEEKS AGO. 3 DAYS AGO, HE STARTED THROAT PAIN AND DIFFICULTY SWALLOWING. COUGH INCREASES THROAT PAIN. PER PT, FEVER IS ON AND OFF AT NIGJHT. PT DENOIES SOB, CHEST PAIN, NAUSEA, VOMITING AND OTHER COMPLAINTS. NO OTHER SYMPTOMS REPORTED AT THIS TIME OF CARE. Chief Complaint: Cough Time Seen by MD: 07:36 Primary Care Provider: none Reviewed notes: Nurses Notes, Medications, Allergies Information Source: Patient Mode of Arrival: Ambulatory Severity: Moderate Timing: Days Duration: Since onset, Days Context: Spontaneous Onset PE Risk Factors: None History of: Recent URI Prehospital treatment: None Modifying Factors: Nothing Associated Signs and Symptoms: Cough, Nasal Congestion, Sore Throat If cough with SOB: Productive Past Medical History PAST MEDICAL HISTORY: High Lipids, HTN Surgical History: Denies all surgeries Family History Family History: Reviewed,noncontributory to illness, Family hx of HTN Social History Smoker: Quit Greater Than 1 Year, Cigarettes Alcohol: Denies ETOH Use Drugs: Denies Drug Use Lives In: Home Constitutional: denies: chills, diaphoresis, fatigue, fever, malaise, sweats, weakness, others EENTM: reports: nose congestion, throat pain, throat swelling, voice changes Respiratory: reports: cough; denies: hemoptysis, orthopnea, SOB at rest, shortness of breath, SOB with excertion, stridor, wheezing, others Cardiovascular: denies: chest pain, dizzy spells, diaphoresis, Dyspnea on exertion, edema, irregular heart beat, left arm pain, lightheadedness, palpitations, PND, syncope, others Gastrointestinal: denies: abdomen distended, abdominal pain, blood streaked bowels, constipated, diarrhea, dysphagia, difficulty swallowing, hematemesis, melena, nausea, poor appetite, poor fluid intake, rectal bleeding, rectal pain, vomiting, others Genitourinary: denies: burning, dysuria, flank pain, frequency, hematuria, incontinence, penile discharge, penile sore, pain, testicle pain, testicle swelling, urgency, others Neurological: denies: dizziness, fainting, headache, left sided numbness, left sided weakness, numbness, paresthesia, pre-existing deficit, right sided numbness, right sided weakness, seizure, speech problems, tingling, tremors, weakness, others Musculoskeletal: denies: back pain, gout, joint pain, joint swelling, muscle pain, muscle stiffness, neck pain, others Integumetry: denies: bruises, change in color, change in hair/nails, dryness, laceration, lesions, lumps, rash, wounds, others Allergic/Immunocompromised: denies: Difficulty Healing, Frequent Infections, Hives, Itching, others Hematologic/Lymphatic: denies: anemia, blood clots, easy bleeding, easy bruising, swollen glands, others Endocrine: denies: excessive hunger, excessive sweating, excessive thirst, excessive urination, flushing, intolerance to cold, intolerance to heat, unexplained weight gain, unexplained weight loss, others Psychiatric: denies: anxiety, bipolar disorder, depression, hopeless, panic disorder, schizophrenia, sleepless, suicidal, others All Other Systems: Reviewed and Negative Physical Exam General Appearance: No Apparent Distress, Obese HEENT: PERRL/EOMI, Pharyngeal Erythema (TONSILLAR SWELLING, NO EXUDATES. ), TMs Normal Neck: Full Range of Motion, Non-Tender, Normal, Normal Inspection Respiratory: Chest Non-Tender, Expiration, No Accessory Muscle Use, No Respiratory Distress, Rhonchi Cardiovascular: No Edema, No JVD, No Murmur, No Gallop, Normal Peripheral P ulses, Regular Rate/Rhythm Breast Exam: Deferred Gastrointestinal: No Organomegaly, Non Tender, No Pulsatile Mass, Normal Bowel Sounds, Soft Genitalia: Deferred Pelvic: Deferred Rectal: Deferred Extremities: No calf tenderness, Normal capillary refill, Normal inspection, Normal range of motion, Non-tender, No pedal edema Musculoskeletal : Apperance: Normal Neurologic: Alert, finish repairer II-XII nml as Tested, No Motor Deficits, Normal Affect, Normal Mood, No Sensory Deficits Cerebellar Function: Normal Reflexes: Normal Skin: Dry, Normal Color, Warm Peripheral Pulses: 2+ carotid (R), 2+ carotid (L) Lymphatic: No Adenopathy Was a procedure done? Was a procedure done?: No Differential Dx Differential Diagnosis: Bronchitis, Pneumonia, Sinusitis, Allergic Rhinitis, Pharyngitis X-Ray, Labs, Meds, VS Vital Signs Date Time Temp Pulse Resp B/P (MAP) Pulse Ox O2 Delivery O2 Flow Rate FiO2 03/15/25 07:36 97.8 69 15 155/101 97 97.8 Current Medications Medications (Trade) Dose Ordered Sig/Radha Route Start Time Stop Time Status Last Admin Ceftriaxone Sodium (Rocephin) 1,000 mg ONCE ONCE IM 03/15/25 08:45 03/15/25 08:46 03/15/25 08:42 PATIENT: HAYLEY EDMONDSONACCT: [id number]: [id number] : 1965 LOC: ER ROOM / BED: / AGE / SEX: 59 / M ADM STATUS: REG ER SERVICE ORDERING PHYSICIAN: THERESA WORKMAN PROCEDURE(s): CXRP - CHEST PORTABLE REASON: COUGH ORDER NUMBER(s): [id number], ACCESSION NUMBER(s): [id number] EXAM: XY CHEST PORTABLE Indication: COUGH Technique: Single frontal view of the chest was obtained Comparison: CHEST PORTABLE on DOS: 09/04/21, CXRP on DOS: 09/03/21, CHEST XRAY 1 VIEW on DOS: 05/26/20 FINDINGS: Lines and Tubes: None Lungs: No focal consolidation. Pleura: No effusion. No pneumothorax. Cardiomediastinal contours: Unremarkable Bones: No acute osseous abnormality. IMPRESSION: No acute cardiopulmonary disease. ATED BY: KARLOS FAY MD DICTATED DATE/TIME: 03/15/25816 SIGNED BY: KARLOS FAY MD SIGNED DATE/TIME: 03/15/25816 CC: X-Ray, Labs, Meds, VS Comment TREATMENT: ROCEPHIN 1GM IM Time of 1ST Reevaluation: 09:00 Reevaluation 1ST: Improved Patient Education/Counseling: Diagnosis, Treatment, Need For Follow Up Family Education/Counseling: Diagnosis, Treatment, Need For Follow Up Medical Screening: No EMC Exist At This Time SEPSIS Sepsis Screen Date sepsis recognized/suspect: Mar 15, 2025 Time Sepsis recognized/suspect: 0738 Recent Procedure: No On Antibiotic Therapy: No Respiratory Rate >20: No Heart Rate >90: No Temp<36 C (96.8 F) or >38.3 C: No SBP <90 or MAP <65 mmHG: No New Acute Mental Status Change: No Is the patient on CPAP, BIPAP,: No Physician Orders Chest Portable (03/15/25 07:43) Ceftriaxone Sodium (Rocephin) (03/15/25 08:45) Vital Signs Date Time Temp Pulse Resp B/P (MAP) Pulse Ox O2 Delivery O2 Flow Rate FiO2 03/15/25 07:36 97.8 69 15 155/101 97 97.8 Medications Medications Dose Ordered Sig/Radha Route Start Time Stop Time Status Last Admin Dose Admin Ceftriaxone Sodium 1,000 mg ONCE ONCE IM 03/15/25 08:45 03/15/25 08:46 03/15/25 08:42 Departure 1 Departure Time of Disposition: 09:00 Impression: Primary Impression: Acute tonsillitis Qualified Codes: J03.90 - Acute tonsillitis, unspecified Additional Impression: Acute bronchitis Qualified Codes: J20.9 - Acute bronchitis, unspecified Disposition: HOME / SELF CARE / HOMELESS Condition: Stable Additional Instructions: F/U PCP IN 2 DAYS RECHECK. IF CONDITION BECOME WORSE, RETURN TO ED [facility]. e-Prescriptions Promethazine-Dm (Promethazine Dm 6.25-15 mg/5Ml) 1 Sherry Sherry 5 ML PO TID, #160 ML Prov: THERESA WORKMAN 03/15/25 Prednisone (Prednisone) 20 Mg Tab 60 MG PO DAILY, #15 TAB Prov: THERESA WORKMAN 03/15/25 Cephalexin Monohydrate (Cephalexin) 500 Mg Cap 1 CAP PO QID, #32 CAP Prov: THERESA WORKMAN 03/15/25 Discharged With: Self, Relative Critical Care Note Critical Care Time?: No Stability Stability form required: No Heart Score Heart Score: Heart Score Response (Comments) Value History N/A 0 EKG N/A 0 Age N/A 0 Risk Factors N/A 0 Troponin N/A 0 Total 0 THERESA WORKMAN Mar 15, 2025 08:41
[2025-03-15] MEDS: cefTRIAXone SOD 1,000 MG VL IM ONE (08:42)
[2025-03-15] MEDS ORDERED: PROM1SOL4 PO (08:47)
[2025-03-15 08:48] VITALS: BP 155/101; PULSE 69; RESP 15; TEMP 97.8; O2SAT 97
== END 2025-03-15 08:47 | disposition home or self-care (01) ==
LOC: ER 07:35
DX: J20.9 Acute bronchitis, unspecified (principal); J03.90 Acute tonsillitis, unspecified; I10 Essential (primary) hypertension
CPT/HCPCS: 71045; 96372; 99283; J0696